=== PATIENT | female | born 1970 | race Asian ===

== ENCOUNTER → 2018-10-14 | Outpatient (REF) | LOC: RD 12:00 ==

== ENCOUNTER 2019-06-08 09:27 | Emergency (ER) | payer OTHER ==
[~2019-06-08] VITALS: Ht 160 cm; Wt 70.3 kg
[2019-06-08 09:33] VITALS: Ht 160 cm; Wt 70.3 kg
[2019-06-08 11:13] VITALS: BP 166/90
== END 2019-06-08 11:13 | disposition home or self-care (01) ==
LOC: ED 09:27
DX: S80.02XA Contusion of left knee, initial encounter (principal); W01.0XXA Fall on same level from slipping, tripping and stumbling without subsequent striking against object, initial encounter; Y93.89 Activity, other specified; Y92.89 Other specified places as the place of occurrence of the external cause; Y99.8 Other external cause status
CPT/HCPCS: Q0092